=== PATIENT | male | born 1965 | race Caucasian/White ===

== ENCOUNTER 2019-05-24 20:34 | Emergency (ER) | payer OTHER ==
[~2019-05-24] VITALS: Ht 188 cm; Wt 93.0 kg
[2019-05-24 20:40] VITALS: BP 148/88
--- NOTE | 2019-05-24 20:40 | NUR ---
ED Nurse Note: pt walked in, with laceration to right dorsal hand. per pt, he got cut with a glass accidentally. VSS. pt is alert x 4, ambulatory.
[2019-05-24] MEDS ORDERED: Hydrogen Peroxide 473ml Bottle TOPIC ONE (20:46)
[2019-05-24] MEDS ORDERED: Betadine 4oz Bottle TOPIC ONE (20:47)
--- NOTE | 2019-05-24 21:08 | Emergency Room Report ---
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 He is right-hand dominant. He presents with chief complaint of a laceration to his right hand. He was picking up a glass to clean and it broke and a piece of glass landed on the top of his hand. It lacerated the top of his hand. There was bleeding. Bleeding stopped now. No other injury. Did not pass out. Occurred just prior to arrival. Tetanus shots was more than 10 years ago. No other complaint. Allergies: Coded Allergies: No Known Allergies (Unverified , 05/24/19) Patient History Past Medical History: see triage record, old chart reviewed Past Surgical History: none Pertinent Family History: none Social History: Denies: smoking Immunizations: other Reviewed Nursing Documentation: PMH: Agreed; PSxH: Agreed Nursing Documentation-PMH Past Medical History: No Stated History Review of Systems Eye: Denies: eye pain, blurred vision ENT: Denies: ear pain, nose congestion, throat swelling Respiratory: Denies: cough, shortness of breath Cardiovascular: Denies: chest pain, palpitations Gastrointestinal: Denies: abdominal pain, diarrhea, nausea, vomiting Musculoskeletal: Denies: back pain, joint pain Skin: Denies: rash Neurological: Denies: headache, numbness Endocrine: Denies: increased thirst, increased urine Hematologic/Lymphatic: Denies: easy bruising All Other Systems: negative except mentioned in HPI Physical Exam Vital Signs Date Time Temp Pulse Resp B/P (MAP) Pulse Ox O2 Delivery O2 Flow Rate FiO2 05/24/19 20:36 97.5 64 16 152/89 (110) 96 Room Air Vitals with high blood pressure Sp02 EP Interpretation: reviewed, normal General Appearance: well appearing, no apparent distress, alert Head: normocephalic, atraumatic Eyes: bilateral eye PERRL, bilateral eye EOMI ENT: hearing grossly normal, normal pharynx Neck: full range of motion, supple, no meningismus Respiratory: chest non-tender, lungs clear, normal breath sounds Cardiovascular #1: regular rate, rhythm, no murmur Gastrointestinal: normal bowel sounds, non tender, no mass, no organomegaly, no bruit, non-distended Musculoskeletal: back normal, gait/station normal, normal range of motion, other - Right hand: 3 Centimeter laceration to the dorsum of the hand. No foreign body. No tendon involvement. Psychiatric: mood/affect normal Procedures Laceration/Wound Repair Laceration/Wound Repair : Consent: Verbal Wound Location: upper extremity Wound's Depth, Shape: superficial Wound Length (cm): 3 Wound Explored: clean Irrigated w/ Saline (ccs): 1000 Anesthesia: 1% Lidocaine Volume Anesthetic (ccs): 3 Wound Repaired With: sutures Suture Size/Type: 4:0, proline Number of Sutures: 5 Patient Tolerated: Well Complications: None Medical Decision Making Diagnostic Impression: Primary Impression: Laceration of hand Qualified Codes: S61.411A - Laceration without foreign body of right hand, initial encounter ER Course Patient presents with hand laceration. No foreign body. No tendon involvement. Last Vital Signs Date Time Temp Pulse Resp B/P (MAP) Pulse Ox O2 Delivery O2 Flow Rate FiO2 05/24/19 20:36 97.5 64 16 152/89 (110) 96 Room Air Status: improved Disposition: HOME, SELF-CARE Patient Instructions: Laceration Care, Adult Additional Instructions: Keep Wound clean. Follow-up with Workmen's Comp. doctor in 7 to 10 days for suture removal. Return if worse. Glynn Gan MD May 24, 2019 21:07
[2019-05-24] MEDS ORDERED: Tetanus/Diptheria/Pertussis IM ONE (21:30)
[2019-05-24] MEDS ORDERED: Bacitracin Oint UD TOPIC ONE (21:30)
[2019-05-24 21:35] VITALS: BP 132/80
--- NOTE | 2019-05-24 21:35 | NUR ---
ER DISCHARGE NOTE: Patient is cleared to be discharged per ERMD, pt is aox4, on room air, with stable vital signs. pt was given dc instructions, pt was able to verbalize understanding, pt id band removed without complications. pt is able to ambulate with steady gait. pt took all belongings.
== END 2019-05-24 21:35 | disposition home or self-care (01) ==
LOC: EMR 21:03
DX: S61.411A Laceration without foreign body of right hand, initial encounter (principal); Z23 Encounter for immunization; W25.XXXA Contact with sharp glass, initial encounter; Y93.G1 Activity, food preparation and clean up; Y92.9 Unspecified place or not applicable; Y99.0 Civilian activity done for income or pay
CPT/HCPCS: 90471; 90715; 99283; A4246